=== PATIENT | female | born 1985 | race African-American/Black ===

== ENCOUNTER 2020-11-01 18:54 | Emergency (ER) | payer BC ==
[~2020-11-01] VITALS: Ht 175.3 cm; Wt 85.0 kg
[2020-11-01 19:09] VITALS: BP 128/86
[2020-11-01] MEDS ORDERED: ACETAMINOPHEN 500 MG TABLET PO ONE (19:15)
[2020-11-01] MEDS ORDERED: IBUPROFEN 600 MG TABLET. PO ONE (19:15)
--- NOTE | 2020-11-01 19:20 | PHYS DOC ---
Adult General Chief Complaint Chief Complaint: FOOT INJURY PAIN HPI HPI Patient is a healthy 35-year-old female who presents with left ankle pain after twisting it playing football approximately 6 hours ago. States she was running, twisted it and had immediate pain, 8 out of 10 and initially hurt to ambulate. States that after sitting down for a bit she was able to get up and walk with less pain. States that a few hours later she began to have swelling in the area, and return of pain. Denies any other injuries. Review of Systems Review of Systems Review of systems otherwise unremarkable except noted in HPI Allergies Allergies Allergies Coded Allergies Type Severity Reaction Last Updated Verified No Known Drug Allergies 11/01/20 No Physical Exam Physical Exam Constitutional: Well developed, well nourished, no acute distress, non-toxic appearance. [] Cardiovascular:Heart rate regular rhythm, no murmur [] Lungs & Thorax: Bilateral breath sounds clear to auscultation [] Abdomen: Bowel sounds normal, soft, no tenderness, no masses, no pulsatile masses. [] Skin: Warm, dry, no erythema, no rash. [] Back: No tenderness Extremities: Tenderness and swelling at and around left lateral malleolus. Neurovascular exam intact. Range of motion limited secondary to pain Neurologic: Alert and oriented X 3, normal motor function, normal sensory function, no focal deficits noted. [] Psychologic: Affect normal, judgement normal, mood normal. [] EKG EKG [] Radiology/Procedures Radiology/Procedures [] FINDINGS/ IMPRESSION: There is cortical irregularity involving the medial aspect of the fibula at the level of the ankle mortise which could represent a nondisplaced fracture. Joint spaces are maintained. Bone mineralization is within normal limits. Lateral soft tissue swelling is noted. There is no soft tissue gas or osseous erosion. No radiopaque foreign body. Electronically signed by: Georgie Becerra MD (11/01/2020 7:46 PM) [facility] Heart Score C/O Chest Pain: No Risk Factors: Risk Factors: DM, Current or recent (<one month) smoker, HTN, HLP, family history of CAD, obesity. Risk Scores: Risk Factors: DM, Current or recent (<one month) smoker, HTN, HLP, family history of CAD, obesity. Course & Med Decision Making Course & Med Decision Making Patient is a 35-year-old female presents with left ankle pain Vital signs not concerning. Physical exam noted above. Given Tylenol, ibuprofen and ice pack. Neurovascularly intact. Imaging noted above notable for cortical irregularity involving the medial aspect fibula at the level of the ankle mortise suggesting a nondisplaced fracture. No other acute osseous abnormalities noted. Placed in a posterior short leg splint with stirrup. Given crutches and advised not ambulation. Given contact information for [facility] orthopedic group. Advised on pain control at home. Advised to call the orthopedic group first thing Tuesday to discuss her ED visit and set up a follow-up sometime next week for continued evaluation and treatment. Gave return precautions for the ED. Family grateful, verbalized understanding and agreed with plan of discharge. [] Dragon Disclaimer Dragon Disclaimer This electronic medical record was generated, in whole or in part, using a voice recognition dictation system. Departure Departure: Impression: Primary Impression: Left ankle pain Additional Impression: Fracture of distal fibula Disposition: 01 DC HOME SELF CARE/HOMELESS Condition: IMPROVED Referrals: SALVADOR GOTTI MD Patient Instructions: Ankle Sprain, Fibular Fracture, Ankle, Adult, Undisplaced, Treated with Immobilization, RICE - Routine Care for Injuries Additional Instructions: Please read all the attached information. You can use Tylenol, ibuprofen and ice as needed at home for pain control. Please use your prescription pain medicine for breakthrough pain only. Please stay off the ankle, and try not to ambulate to allow some healing and prevent worsening of the injury. When you need to walk, please use your crutches at all time and do not put any weight on your left foot. Please follow-up with your primary care physician next week to discuss your injury and clear you for return to sports activity. Please come back to the ED with new or concerning symptoms. Please call the [facility] orthopedic group first thing Tuesday to discuss your ED visit and set up a follow-up visit for next week at . Please also call your primary care physician to update on your ED visit as well. Please come back to the ED with new or concerning symptoms as discussed. Scripts Hydrocodone Bit/Acetaminophen (HYDROCODONE-APAP 5-325 ) 1 Each Tablet 1 TAB PO PRN Q6HRS PRN for fracture for 5 Days, #20 TAB 0 Refills Prov: MILLA MOSQUEDA MD 11/01/20 Problem Qualifiers MILLA MOSQUEDA MD Nov 01, 2020 19:20
--- NOTE | 2020-11-01 19:49 | RAD ---
XR EXAM OF ANKLE_LEFT 3V 11/01/2020 7:23 PM INDICATION: Trauma COMPARISON: None available. TECHNIQUE: 3 views of the right ankle are provided. FINDINGS/ IMPRESSION: There is cortical irregularity involving the medial aspect of the fibula at the level of the ankle mo rtise which could represent a nondisplaced fracture. Joint spaces are maintained. Bone mineralization is within normal limits. Lateral soft tissue swelling is noted. There is no soft tissue gas or osseo us erosion. No radiopaque foreign body. Electronically signed by: Georgie Becerra MD (11/01/2020 7:46 PM) [facility]
--- NOTE | 2020-11-01 19:50 | RAD ---
Exam: Left tibia and fibula 2 views INDICATION: Trauma TECHNIQUE: Frontal and lateral views of the left tibia and fibula Comparisons: None FINDINGS: Bone mineralization is normal. No acute or healed fractures. Soft tissues are unremarkable. Joint [facility] are well-maintained. IMPRESSION: No acute osseous abnormality. Electronically signed by: Angelique Mojica MD (11/01/2020 7:48 PM) [facility]
[2020-11-01] MEDS ORDERED: HYDR-2155 PO (20:02)
== END 2020-11-01 20:35 | disposition home or self-care (01) ==
LOC: ER 18:54
DX: S82.832A Other fracture of upper and lower end of left fibula, initial encounter for closed fracture (principal); X50.9XXA Other and unspecified overexertion or strenuous movements or postures, initial encounter; Y93.02 Activity, running; Y92.89 Other specified places as the place of occurrence of the external cause; Y99.8 Other external cause status
CPT/HCPCS: 29515; 73590; 73610; 99284-25